=== PATIENT | male | born 1965 ===

== ENCOUNTER 2018-07-03 08:55 | Emergency (ER) | payer OTHER ==
[2018-07-03] MEDS ORDERED: DIPHTH,PERTUSS(ACELL),TET 0.5 ML DISP.SYRIN IM ONE ×2 (09:16→09:17)
--- NOTE | 2018-07-03 09:17 | PDOC ---
History of Present Illness - General Chief Complaint: Laceration Stated Complaint: LEFT SCALP LACERATION Time Seen by Provider: 07/03/18 09:00 History Source: Patient Exam Limitations: No Limitations - History of Present Illness Initial Comments: 07/03/18 09:15 CC: scalp lac HPI: was at work today for [employer], was walking under a tree with a branch that had recently been trimmed to a blunt end. The end of the branch contacted his scalp despite him ducking. He sustained a 2.5 inch laceration to the left parietal scalp. 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 PMHx: last tetanus booster was 10 years ago ROS: no headache, no vomiting, no LOC, no neck pain Past History - Past Medical History Allergies/Adverse Reactions: Allergies Allergy/AdvReac Type Severity Reaction Status Date / Time No Known Allergies Allergy Unverified 07/03/18 08:56 Home Medications: Ambulatory Orders Lisinopril [Prinivil] 5 mg PO DAILY #30 tablet 07/03/18 Asthma: No COPD: No HTN: Yes - Immunization History Immunization Up to Date: No - Suicide/Smoking/Psychosocial Hx Smoking History: Never smoked Information on smoking cessation initiated: No Hx Alcohol Use: No Drug/Substance Use Hx: No *Physical Exam - Vital Signs Last Vital Signs Temp Pulse Resp BP Pulse Ox 98 F 103 H 16 179/119 H 98 07/03/18 08:56 07/03/18 08:56 07/03/18 08:56 07/03/18 08:56 07/03/18 08:56 - Physical Exam Comments: 07/03/18 09:18 Awake, alert, o x 3 scalp with 2.5 inch (7 cm) laceration linear to left parietal scalp perrl eomi face nl neck nl rom no pain neuro nl cn, mental status, motor, sensory and gait Moderate Sedation - Procedure Monitoring Vital Signs: Procedure Monitoring Vital Signs Temperature 98 F 07/03/18 08:56 Pulse Rate 103 H 07/03/18 08:56 Respiratory Rate 16 07/03/18 08:56 Blood Pressure 179/119 H 07/03/18 08:56 O2 Sat by Pulse Oximetry (%) 98 07/03/18 08:56 Procedures - Laceration/Wound Repair Left Head Wound Length: 5.0 to 7.5 cm Wound Explored: clean, no foreign body present Wound's Depth, Shape: linear Irrigated w/ Saline: Yes Progress: 07/03/18 09:25 hair trimmed away from wound with scissors saline irrigation wound inspected, clean and no FB skin glue closure with good result advised regarding treatment and follow up Medical Decision Making - Medical Decision Making 07/03/18 09:26 scalp laceration from tree branch, no foreign material, cleansed with saline lavage, tetanus given would closure with skin glue no clinical symptoms of head injury patient with hx of hypertension, no symptoms of chest pain, sob, dizziness, headache or other will repeat blood pressure need to start medication discussed with patient *DC/Admit/Observation/Transfer Diagnosis at time of Disposition: Scalp laceration Qualifiers: Encounter type: initial encounter Qualified Code(s): S01.01XA - Laceration without foreign body of scalp, initial encounter - Discharge Dispostion Disposition: HOME Condition at time of disposition: Stable Decision to Admit order: No - Prescriptions Prescriptions: Lisinopril [Prinivil] 5 mg PO DAILY #30 tablet - Referrals - Patient Instructions Printed Discharge Instructions: DI for Laceration Repair With Dermabond Additional Instructions: You were treated for a scalp laceration. The wound was cleansed and skin glue was applied. The skin glue will wear off in a week or so. Do not wash directly on that area. You may wash the rest of your hair with a washcloth, avoiding the area of the laceration for one week. You may shower from the neck down but not on the area of the skin glue. Your tetanus booster was given as Tdap (Boostrix) and is good for 5 years if you have another cut, or 10 years for a routing booster. Your blood pressure was high again today. I know your doctor said you could stop your lisinopril and watch your pressure, but I am restarting lisinopril for you today and advising you to go to your doctor (Dr. Burgos) for a repeat blood pressure check in 1 to 2 weeks. Follow up with your doctor and return to the ER for any serious symptoms. Watch for any signs of redness or infection of the scalp and follow up with your doctor or the ER if any infection develops. - Post Discharge Activity
[2018-07-03 09:18] VITALS: PULSE 103; TEMP 98; BMI 25.0
[2018-07-03 09:49] VITALS: BP 157/113
== END 2018-07-03 09:50 | disposition home or self-care (01) ==
LOC: FER 08:55
PROC: 0HQ0XZZ Repair Scalp Skin, External Approach (ICD-10-PCS; principal; 2018-07-03)
DX: S01.01XA Laceration without foreign body of scalp, initial encounter (principal); W22.09XA Striking against other stationary object, initial encounter; Y93.89 Activity, other specified; Y92.410 Unspecified street and highway as the place of occurrence of the external cause
CPT/HCPCS: 90715; 99282-25